=== PATIENT | male | born 1985 | race African-American/Black ===

== ENCOUNTER 2021-04-21 10:34 | Emergency (ER) | payer MEDICAID ==
[~2021-04-21] VITALS: Ht 170.2 cm; Wt 73.0 kg
[2021-04-21 10:41] VITALS: BP 137/98
[2021-04-21] MEDS ORDERED: IBUP-2028 PO (10:47)
[2021-04-21] MEDS ORDERED: MAGNESIUM CITRATE 300ML SOLUTION PO ONE (11:00)
[2021-04-21] MEDS ORDERED: NA PHOS,M-B/NA PHOS,DI-BA ENEMA 118ML PR ONE (11:00)
[2021-04-21] MEDS ORDERED: PSYL0.4C2 MT (12:20)
[2021-04-21] MEDS ORDERED: POLY17PO3 MT (12:20)
== END 2021-04-21 16:26 | disposition home or self-care (01) ==
LOC: ER 10:34
DX: K59.00 Constipation, unspecified (principal); M54.12 Radiculopathy, cervical region; Z91.048 Other nonmedicinal substance allergy status
CPT/HCPCS: 99282